=== PATIENT | male | born 1995 | race Caucasian/White ===

== ENCOUNTER 2020-09-29 19:04 | Emergency (ER) | payer OTHER ==
[2020-09-29 19:11] VITALS: BP 148/88
[2020-09-29] MEDS ORDERED: BUFFERED LIDOCAINE 10 ML SYRINGE SUBQ STA (19:34)
[2020-09-29] MEDS ORDERED: BACITRACIN ZINC OINT 1 PACKET TOP STA (20:13)
--- NOTE | 2020-09-29 20:28 | ED Physician Documentation ---
History of Present Illness - Stated complaint Stated Complaint: LT HAND LAC - Chief complaint Chief Complaint: Laceration - Additonal information Additional information: 24-year-old male presents the emergency department for evaluation of a left hand laceration between his middle and ring finger sustained when playing football. He has a rather large laceration that extends between the webbing of the 2 fingers to the dorsum of the hand under the middle finger. Patient is right- hand dominant. Tetanus is up-to-date. Review of Systems Constitutional: reports: Reviewed and negative Eyes: reports: Reviewed and negative Ears: reports: Reviewed and negative Nose: reports: Reviewed and negative Throat: reports: Reviewed and negative Cardiac: reports: Reviewed and negative Skin: reports: Laceration (s) (Left hand) PD PAST MEDICAL HISTORY - Past Medical History Past Medical History: No - Past Surgical History Past Surgical History: No - Present Medications Home Medications: Ambulatory Orders Medication Instructions Recorded Confirmed No Known Home Medications 09/29/20 09/29/20 - Allergies Allergies/Adverse Reactions: Allergies Allergy/AdvReac Type Severity Reaction Status Date / Time No Known Drug Allergies Allergy Verified 09/29/20 19:07 - Social History Does the pt smoke?: No Smoking Status: Never smoker Does the pt drink ETOH?: Yes Does the pt have substance abuse?: No - Immunizations Immunizations are current?: Yes - POLST Patient has POLST: No PD ED PE EXPANDED - General General: Alert, No acute distress - Extremities Extremities: Left hand (2+ radial pulse. Brisk cap refill. Normal flexion extension of all digits against resistance. Distal sensation of the ring and middle fingers preserved.), Left finger(s) (4 cm laceration that extends from the webbing between the ring and middle finger and extends to the dorsum of the hand under the MCP of the middle finger. No exposed bone cartilage or tendon is seen.) Results - Vitals Vitals: Vital Signs - 24 hr 09/29/20 19:07 Temperature 36.5 C Heart Rate 54 L Respiratory 16 Rate Blood Pressure 148/88 H O2 Saturation 99 Oxygen O2 Source Room air Procedures - Laceration (location) left hand laceration Length in cm: 3.4 Wound type: Irregular, Into subcut fat Anesthesia: Lidocaine 1% Wound preparation: Chlorhexadine, Irrigated copiously NS Skin layer closure: Interrupted, Sutures - enter # (8) Other: Patient tolerated well, No complications, Neurovascular intact, Tetanus UTD PD MEDICAL DECISION MAKING - ED course Complexity details: re-evaluated patient, d/w patient ED course: 24-year-old male presents emergency department for evaluation and treatment of a left hand laceration sustained this afternoon when he was playing football. His fingers were during forceful contact play. Laceration extends between the webbing to the dorsum of the palm under the MCP of the middle finger. Preserved flexion and extension against resistance. Distal sensation is preserved. The wound was easily closed with 8 sutures though given the location it was a difficult closure. Routine wound care emergent return precautions were discussed Departure - Departure Disposition: 01 Home, Self Care Clinical Impression: Hand laceration Qualifiers: Encounter type: initial encounter Foreign body presence: without foreign body Laterality: left Qualified Code(s): S61.412A - Laceration without foreign body of left hand, initial encounter Condition: Stable Record reviewed to determine appropriate education?: Yes Instructions: ED Laceration Hand Comments: Your suture should be removed in 9 to 10 days. In 24 hours you may remove the dressing wash gently with warm soap and water, apply any antibiotic ointment and a simple bandage. Your tetanus is up-to-date. Please attempt to keep your wound clean and dry. Do not submerge it in dirty dishwater or bath water. Return to the emergency department if you have any concerns of infection such as redness, fevers milky drainage increased pain.
== END 2020-09-29 20:30 | disposition home or self-care (01) ==
LOC: ED 19:04
DX: S61.412A Laceration without foreign body of left hand, initial encounter (principal); W45.8XXA Other foreign body or object entering through skin, initial encounter; Y93.61 Activity, american tackle football; Y92.9 Unspecified place or not applicable
CPT/HCPCS: 12002; 99282; A9270

== ENCOUNTER 2021-03-19 09:45 | Emergency (ER) | payer OTHER ==
--- NOTE | 2021-03-19 11:00 | XRAY Report ---
PROCEDURE: Chest 2 View X-Ray INDICATIONS: cough TECHNIQUE: 2 view(s) of the chest. COMPARISON: None. FINDINGS: SUPPORT DEVICES: None. LUNGS/PLEURA: No focal consolidation, pleural effusion or space-occupying pneumothorax. MEDIASTINUM: The cardiomediastinal silhouette is within normal limits. BONES/SOFT TISSUES: No acute abnormality. IMPRESSION: 1.No acute cardiopulmonary abnormality. Reviewed by: Issac Whittington MD on 03/19/2021 10:59 AM PDT Approved by: Issac Whittington MD on 03/19/2021 10:59 AM PDT Station ID: [id number]
--- NOTE | 2021-03-19 12:01 | ED Physician Documentation ---
PD HPI URI - Stated complaint Stated Complaint: COUGHING BLOOD - Chief complaint Chief Complaint: Heent - History obtained from History obtained from: Patient - History of Present Illness Timing - onset: Today Timing duration: Days (1) Pain level max: 0 Pain level now: 0 Associated symptoms: Nasal congestion. No: Fever, Chills Contributing factors: No: Sick contact, Immunocompromised, Unimmunized, COPD / asthma Improves by: Rest Worsened by: Activity, Breathing Recently seen: Not recently seen - Additional information Additional information: Patient is a 25-year-old male who states that he had Covid about 3 months ago. He states he has had an intermittent cough since then. Has received his Covid vaccination since then. Over the past 2 to 3 days has had nasal congestion and sinus pressure. No fever or chills. He states that this morning he coughed and there was dark red blood in the sputum. No chest pain. Nothing makes it better or worse. Currently feeling better. Review of Systems Constitutional: denies: Fever, Chills Respiratory: denies: Dyspnea, Wheezing GI: denies: Nausea, Vomiting, Diarrhea Skin: denies: Rash Musculoskeletal: denies: Neck pain, Back pain Neurologic: denies: Headache PD PAST MEDICAL HISTORY - Past Medical History Cardiovascular: None Respiratory: None Neuro: None Endocrine/Autoimmune: None GI: None : None HEENT: None Psych: None Musculoskeletal: None Derm: None - Past Surgical History Past Surgical History: No - Present Medications Home Medications: Ambulatory Orders Medication Instructions Recorded Confirmed Benzonatate [Tessalon] 200 mg PO TID PRN #30 cap 03/19/21 Cetirizine HCl/Pseudoephedrine 1 each PO BID PRN #30 ea 03/19/21 [Zyrtec-D Tablet] - Allergies Allergies/Adverse Reactions: Allergies Allergy/AdvReac Type Severity Reaction Status Date / Time No Known Drug Allergies Allergy Verified 03/19/21 09:50 - Social History Does the pt smoke?: No Smoking Status: Never smoker Does the pt drink ETOH?: Yes Does the pt have substance abuse?: No - Immunizations Immunizations are current?: Yes - POLST Patient has POLST: No PD ED PE NORMAL - Vitals Vital signs reviewed: Yes - General General: Alert and oriented X 3, No acute distress, Well developed/nourished - HEENT HEENT: PERRL, Ears normal, Moist mucous membranes - Neck Neck: Supple, no meningeal sign - Cardiac Cardiac: RRR, Strong equal pulses - Respiratory Respiratory: No respiratory distress, Clear bilaterally - Abdomen Abdomen: Soft, Non tender, Non distended - Derm Derm: Warm and dry - Extremities Extremities: No edema - Neuro Neuro: Alert and oriented X 3 - Psych Psych: Normal mood, Normal affect Results - Vitals Vitals: Vital Signs - 24 hr 03/19/21 03/19/21 09:51 12:10 Temperature 37 C Heart Rate 63 56 L Respiratory 18 17 Rate Blood Pressure 131/80 H 123/88 H O2 Saturation 99 100 Oxygen O2 Source Room air - Rads (name of study) cxr Radiology: Final report received, EMP read contemporaneously, See rad report (no acute abnormality.) PD MEDICAL DECISION MAKING - ED course Complexity details: reviewed results, re-evaluated patient, considered differential, d/w patient ED course: No acute abnormalities on chest x-ray. Patient is well-appearing, nontoxic. Afebrile. No acute findings on physical exam. Appears to have sinus congestion from a viral upper respiratory infection. Will place on decongestants for home. Patient counseled regarding signs and symptoms for which I believe and urgent re-evaluation would be necessary. Patient with good understanding of and agreement to plan and is comfortable going home at this time This document was made in part using voice recognition software. While efforts are made to proofread this document, sound alike and grammatical errors may occur. Departure - Departure Disposition: 01 Home, Self Care Clinical Impression: Viral URI with cough Condition: Good Instructions: ED URI Viral Follow-Up: your,doctor as needed [Other] Prescriptions: Benzonatate [Tessalon] 200 mg PO TID PRN #30 cap PRN Reason: Cough Cetirizine HCl/Pseudoephedrine [Zyrtec-D Tablet] 1 each PO BID PRN #30 ea PRN Reason: nasal congestion Comments: Your prescriptions were sent to the [facility]. Please follow-up with your doctor for further care. Return if you worsen. There are no acute findings on your x-ray today. Discharge Date/Time: 03/19/21 12:11
[2021-03-19 12:11] VITALS: BP 123/88
== END 2021-03-19 12:11 | disposition home or self-care (01) ==
LOC: ED 09:45
DX: J06.9 Acute upper respiratory infection, unspecified (principal); R05.9 Cough, unspecified
CPT/HCPCS: 99283

== ENCOUNTER 2021-09-23 07:35 | Outpatient (CLI) | payer OTHER ==
--- NOTE | 2021-09-23 08:36 | XRAY Report ---
PROCEDURE: Ankle 3 View RT INDICATIONS: SPRAIN OF R ANKLE TECHNIQUE: 3 views of the right ankle were obtained. COMPARISON: None. FINDINGS: Bones: No fractures or dislocations. No suspicious bony lesions. Soft tissues: No suspicious soft tissue calcifications. IMPRESSION: Normal right ankle Reviewed by: Scottie Galarza on 09/23/2021 8:35 AM PDT Approved by: Scottie Galarza on 09/23/2021 8:35 AM PDT Station ID: [id number]
== END 2021-09-23 23:59 | disposition home or self-care (01) ==
LOC: DI.N 07:35
PROVIDERS: ATTEND Nurse Practitioner
DX: S93.401A Sprain of unspecified ligament of right ankle, initial encounter (principal)

== ENCOUNTER 2023-02-09 09:15 | Outpatient (CLI) | payer OTHER | END 2023-02-09 09:30 | disposition home or self-care (01) | LOC: LAB.N 09:15 | PROVIDERS: ATTEND Emergency Medicine | DX: R07.0 Pain in throat (principal) | CPT/HCPCS: 87070 ==

== ENCOUNTER 2023-09-30 07:54 | Outpatient (CLI) | payer OTHER ==
--- NOTE | 2023-09-30 09:38 | MRI Report ---
Ankle RT WO CLINICAL HISTORY: 27 years of age, Male, R ANKLE PAIN. COMPARISON: Radiograph on 09/23/2021 Technique: Multisequence, multiplanar MRI of the right ankle was performed without contrast. IV CONTRAST: Not given FINDINGS: Tendons: Mild tenosynovitis of the posterior tibialis. The flexor digitorum longus and the flexor shaye lux longus are unremarkable. The peroneal tendons, and the extensor tendons are unremarkable. The dis yossi Achilles tendon is unremarkable. There is mild muscle edema of the distal soleus muscle. Ligaments: The anterior and posterior tibiofibular ligaments are intact. The anterior and posterior t alofibular ligaments are intact. The calcaneofibular ligament is unremarkable. The superficial and de ep components of the deltoid ligament are intact. Sinus Tarsi: Normal signal without evidence of inflammatory change or fibrosis. Small amount of flui d within the Gruberi bursa. Plantar fascia: Normal signal and morphology without evidence of inflammation or tear. Muscles: Visualized intrinsic foot musculature demonstrates normal signal and bulk. Bones and cartilage: Minimal patchy marrow edema in the medial malleolus, nonspecific. No osteochondr al lesion of the talus dome. Miscellaneous: Tarsal tunnel appears normal. Small tibiotalar effusion. Small amount of fluid within the talonavicular articulation. No ganglion cyst. IMPRESSION: 1.Mild muscle edema of the distal soleus muscle, nonspecific. Unremarkable Achilles tendon. 2.Minimal patchy marrow edema of the medial malleolus, nonspecific. Reviewed by: Nuria Flores MD on 09/30/2023 9:37 AM PDT Approved by: Nuria Flores MD on 09/30/2023 9:37 AM PDT Station ID: [id number]
--- NOTE | 2023-09-30 09:49 | MRI Report ---
Hip RT WO CLINICAL HISTORY: 27 years of age, Male, R HIP PAIN. COMPARISON: None Technique: Multisequence, multiplanar MRI of the right hip was performed without contrast. IV CONTRAST: Not given FINDINGS: Labrum: Anterior labral tear (7:15). In addition, there is a superior labral tear, extending to the posterior superior labrum, and the posterior labrum. Ligaments: Unremarkable. Tendons: The iliopsoas, hamstring, and adductor tendons are unremarkable. There is mild muscle edema along the myotendinous junction of the right gluteal minimus, likely representing mild muscle strain. The right gluteal medius tendon is unremarkable. Osseous and cartilaginous structures: Normal bone marrow signal and normal morphology without evidenc e of dysplasia, edema, fracture, or avascular necrosis. No definite chondral thinning or irregularity . Sacroiliac joints and spine: 9 mm T2 hyperintense lesion posterior and to the right aspect of L4-5 (3 :19), incompletely evaluated. The visualized lower lumbar spine is otherwise unremarkable. The sacrum , bilateral posterior iliac wing, bilateral pelvic bones, and bilateral proximal femur are unremarkab le. No avascular necrosis of either femoral head. Miscellaneous: The visualized musculature demonstrates normal signal and morphology without evidence of strain or tear. IMPRESSION: 1.Extensive labral tear of the right hip. 2.Mild muscle strain at the myotendinous junction of the right gluteal minimus. 3.9 mm T2 hyperintense lesion posterior and to the right aspect L4-5, incompletely evaluated. This ma y represent a small cyst. Further evaluation with dedicated lumbar spine MRI can be considered if cli nically indicated. Reviewed by: Nuria Flores MD on 09/30/2023 9:47 AM PDT Approved by: Nuria Flores MD on 09/30/2023 9:47 AM PDT Station ID: [id number]
== END 2023-09-30 07:55 | disposition home or self-care (01) ==
LOC: DI 07:54
PROVIDERS: ATTEND Nurse Practitioner Family
DX: M25.571 Pain in right ankle and joints of right foot (principal); R93.6 Abnormal findings on diagnostic imaging of limbs; S73.101A Unspecified sprain of right hip, initial encounter; S76.011A Strain of muscle, fascia and tendon of right hip, initial encounter

== ENCOUNTER 2023-10-13 07:39 | Outpatient (CLI) | payer OTHER ==
[~2023-10-13 07:39] MED LIST: GADOTERATE MEGLUMINE 10 MMOL/20 ML VIAL ONE
[2023-10-13] MEDS: GADOTERATE MEGLUMINE 10 MMOL/20 ML VIAL IVP ONE (09:24)
--- NOTE | 2023-10-13 11:35 | MRI Report ---
PROCEDURE: Lumbar Spine W/WO INDICATIONS: LUMBAR LESION CONTRAST: clariscan 20ml TECHNIQUE: Noncontrast sagittal T1 spin echo and T2 fast spin echo, sagittal STIR, axial T1 and T2 fast spin ech o through the lumbar spine. In cases with scoliosis, additional coronal T2 fast spin echo may be per formed. After the administration of contrast, sagittal and axial T1 spin echo with fat saturation th rough the lumbar spine. COMPARISON: MRI hip 09/30/2023. FINDINGS: Image quality: Excellent. Alignment and curvature: There is normal bony alignment. Marrow: The lesion described on prior hip MRI correlates to a 7 x 5 x 9 mm (TV the AP by cc) cystic structure posterior to the right L4-L5 facet joint, most likely a synovial cyst. Marrow is of normal overall signal. No acute vertebral body compression fractures. No suspicious marrow enhancement. Spinal cord: Conus medullaris terminates at the L1 level. Visualized spinal cord demonstrates zach l signal, without suspicious enhancement. Paraspinous soft tissues: No paravertebral masses or abnormal enhancement. T12-L1: Normal in appearance. L1-L2: Normal in appearance. L2-L3: Normal in appearance. L3-L4: Normal in appearance. L4-L5: Normal in appearance. L5-S1: Disc desiccation and height loss. Small central disc protrusion and posterior annular tear. No central canal or neural foraminal stenosis. IMPRESSION: 1.The structure seen on prior MRI hip correlates to a cystic structure posterior to the right L4-L5 f acet joint, most consistent with a synovial cyst. 2.Degenerative disc disease at L5-S1. No central canal or neural foraminal stenosis. Reviewed by: Danny Cochran MD on 10/13/2023 10:34 AM CRISTI Approved by: Danny Cochran MD on 10/13/2023 10:34 AM CRISTI Station ID: [id number]
== END 2023-10-13 07:40 | disposition home or self-care (01) ==
LOC: DI 07:39
PROVIDERS: ATTEND Nurse Practitioner Family
DX: R93.7 Abnormal findings on diagnostic imaging of other parts of musculoskeletal system (principal); M51.37 Other intervertebral disc degeneration, lumbosacral region
CPT/HCPCS: 72158; A9575